=== PATIENT | female | born 1980 | race Caucasian/White ===

== ENCOUNTER 2020-04-12 16:37 | Emergency (ER) | payer OTHER, SELFPAY ==
[2020-04-12 16:54] VITALS: PULSE 110; RESP 18
[2020-04-12 16:55] VITALS: BP 145/93; PULSE 129; RESP 18; TEMP 37.3; O2SAT 100
[2020-04-12 17:05] VITALS: BP 145/93; PULSE 129; RESP 18; TEMP 37.3; O2SAT 100
--- NOTE | 2020-04-12 17:05 | ED.CHESTPAIN ---
HPI - Chest Pain General Chief Complaint: Chest Pain Stated Complaint: chest tightness History of Present Illness HPI narrative: This is a 40-year-old female comes in complaining of intermittent chest pains patient currently is complaining chest tightness she can also feel her heart beating on her chest. Mrs Barboza states that she has had some shortness of breath. Patient states that she was just diagnosed in December with multiple sclerosis. Patient states that she just got off her steroids last week. Patient is very anxious tearful at times. Patient states that it just feels like pressure there is no radiation to arms. Patient talking rapidly states that she is scared she is afraid to be alone due to she feels weird like something is going to happen for her. Patient denies any depression or anxiety but states currently she is a little nervous. Explained to patient that she needs to relax and remain calm. Related Data Home Medications Medication Instructions Recorded Confirmed Capoxone 40 mg 3XW 04/12/20 omeprazole 04/12/20 Allergies Allergy/AdvReac Type Severity Reaction Status Date / Time No Known Allergies Allergy Unverified 09/01/17 14:27 Review of Systems Review of Systems: Narrative: CONSTITUTIONAL: Denies fever, chills, or sweats. EYES: Positive for visual changes, negative redness, or discharge. ENT: Denies rhinorrhea, congestion, sore throat, or otalgia. CARDIOVASCULAR positive chest pain, palpitations, or edema. RESPIRATORY: Denies cough or dyspnea. GASTROINTESTINAL: Denies abdominal pain, nausea, vomiting, or diarrhea. GENITOURINARY: Denies dysuria or hematuria. SKIN:[Denies rash or itching. MUSCULOSKELETAL:Denies back pain, joint pain, or myalgia. NEUROLOGIC: Denies headache, numbness, or weakness. PSYCHIATRIC: Positive for anxiety or depression PMFSH Comments At time as signature, I have reviewed and agree with nursing past medical, social, surgical and family history. Please see nursing chart for further information. There is no relevant family history pertinent to the presenting complaint. Exam Narrative: Exam Narrative: GENERAL:Well-appearing, well-nourished, positive for distress, very anxious. HEAD:Normocephalic, atraumatic. EYES: PERRLA and EOMI. ENT: Nares clear, no rhinorrhea or epistaxis. Mucous membranes moist. NECK: Supple. CHEST: Clear to auscultation. No respiratory distress. HEART: Irregular regular tacky rate and rhythm. No murmur heard. Normal peripheral pulses. ABDOMEN: Soft, nontender, nondistended, normal active bowel sounds. EXTREMITIES: Normal range of motion. No edema. SKIN: Warm, dry, no rash. NEURO: No focal deficits. Alert and oriented x3. Course Vital Signs Vital signs: Vital Signs Temperature 99.1 F 04/12/20 16:55 Pulse Rate 129 H 04/12/20 16:55 Respiratory Rate 18 04/12/20 16:55 Blood Pressure 145/93 H 04/12/20 16:55 Pulse Oximetry 100 04/12/20 16:55 Temperature 99.1 F 04/12/20 16:55 Pulse Rate 129 H 04/12/20 16:55 Respiratory Rate 18 04/12/20 16:55 Blood Pressure 145/93 H 04/12/20 16:55 Pulse Oximetry 100 04/12/20 16:55 Transfer Transfered to: [facility] Transfer rationale: higher acuity of care Accepting physician: [facility] - Chest Pain MDM Narrative Medical decision making narrative: EKG look Sinus Tachycardia 116 ECG Data EKG #1: ECG completion date: 04/12/20 ECG completion time: 17:29 Prior ECG tracings: not available for review EKG Interpretation: tachycardia, no ST changes and normal QT Discharge Plan Discharge Clinical Impression: Feeling of chest tightness, Anxiousness Patient Disposition: Acute Care Hospital Prescriptions: No Action omeprazole 40 mg capsule,delayed release(DR/EC) RF: 0 Capoxone 40 mg 3XW RF: 0 Follow-up/Referrals: PHYSICIAN,[facility]UR[employer] SUPERVISOR [Primary Care Provider] - Time of Disposition: 17:30
--- NOTE | 2020-04-12 17:11 | ECG_ITS ---
Measurements Intervals [place] Rate: 114 P: 37 [place]: 158 QRS: 28 QRSD: 85 T: 30 QT: 300 QTc: 414 Interpretive Statements SINUS TACHYCARDIA BASELINE ARTIFACT- I, III, AVL, V4-V6 ABNORMAL ECG Electronically Signed On 04-13-2020 8:20:38 SCHEDULE CHECKER by Channing Strong D.O.
== END 2020-04-12 17:38 | disposition short-term general hospital (02) ==
PROVIDERS: Emergency Provider Nurse Practitioner Family
DX: R07.89 Other chest pain (principal); F41.9 Anxiety disorder, unspecified; R00.0 Tachycardia, unspecified
CPT/HCPCS: 93005; 99215; G0463

== ENCOUNTER 2020-04-12 17:55 | Emergency (ER) | payer OTHER, SELFPAY ==
[2020-04-12] VITALS (27 sets, daily range): BP systolic 113–165; BP diastolic 84–100; PULSE 90–129; RESP 14–36; TEMP 36.9; O2SAT 93–100
--- NOTE | ~2020-04-12 | XR_ITS ---
XR chest 2V DATE: 04/12/2020 18:49 INDICATION: Chest tightness. Palpitations. Neck spasms. TECHNIQUE: PA and lateral chest COMPARISON: 04/09/2014 PA and lateral chest FINDINGS: Normal heart size. No hilar or mediastinal enlargement. No pulmonary infiltrate or consolid ation, pleural effusion or pulmonary vascular congestion or pneumothorax is detected. IMPRESSION: No active cardiopulmonary disease Reviewed, dictated and finalized at location A. PROGRAMMER
--- NOTE | 2020-04-12 18:20 | ECG_ITS ---
Measurements Intervals [place] Rate: 110 P: 36 SD: 138 QRS: -7 QRSD: 93 T: 20 QT: 333 QTc: 451 Interpretive Statements SINUS TACHYCARDIA ABNORMAL ECG Electronically Signed On 04-13-2020 8:21:08 [employer] by Channing Strong D.O.
[2020-04-12 18:36] LABS: Basophils Absolute Auto 0.1 K/mm3 (0.0-0.1); Basophils Percent Auto 0.7 % (0.2-1.2); Eosinophils Absolute Auto 0.2 K/mm3 (0-0.3); Eosinophils Percent Auto 1.4 % (0-4.4); Hematocrit 44.5 % (37.0-47.0); Hemoglobin 14.8 g/dL (12.0-15.0); Immature Granulocyte Absolute 0.03 K/mm3 (0.00-0.031); Immature Granulocyte Percent A 0.2 % (0-0.5); Lymphocytes Absolute Auto 1.81 K/mm3 (0.9-3.2); Lymphocytes Percent Auto 13.7 % (18.3-44.2); Mean Corpuscular HGB Conc 33.3 g/dl (32-36); Mean Corpuscular Hemoglobin 29.5 pg (26-34); Mean Corpuscular Volume 88.6 fl (80-100); Mean Platelet Volume 8.6 fl (7.4-10.4); Monocytes Absolute Auto 0.5 K/mm3 (0.1-0.6); Monocytes Percent Auto 4.1 % (2.6-8.5); Neutrophils Absolute Auto 10.5 K/mm3 (1.3-6.7); Neutrophils Percent Auto 79.9 % (45.5-73.1); Platelet Count Result 452 k/mm3 (150-375); Red Blood Count 5.02 M/mm3 (4.2-5.4); Red Cell Distribution Width 12.8 % (11.5-14.5); White Blood Count 13.2 K/mm3 (4.5-10.0)
[2020-04-12 18:53] LABS: Anion Gap 9 mmol/L (8-16); Blood Urea Nitrogen 14 mg/dL (7-17); Calcium 9.3 mg/dL (8.4-10.2); Carbon Dioxide 28 mmol/L (22-30); Chloride 102 mmol/L (98-107); Estimated CRCL calculation 125 ml/min; Estimated Glomerular Filt Rate > 60; Glucose 116 mg/dL (65-105); Potassium 3.8 mmol/L (3.4-5.0); Sodium 139 mmol/L (137-145)
--- NOTE | 2020-04-12 19:21 | PC.NURSE ---
Pt. in WR, not able to st. cath. Pt. in no acute distress, skin signs and resp. wnl
[2020-04-12 19:26] LABS: Prothrombin Time 13.4 Seconds (11.1-14.7)
[2020-04-12 19:27] LABS: Partial Thromboplastin Time 30.6 SECONDS (22.3-36.8)
[2020-04-12 19:29] LABS: D Dimer 0.31 ug/mL (<0.48)
[2020-04-12 19:59] LABS: Magnesium 2.2 mg/dL (1.6-2.3)
[2020-04-12] MEDS: ALPRAZolam (*CRX) 0.25 MG TABLET PO (20:03)
--- NOTE | 2020-04-12 20:04 | ED.SOB ---
HPI - SOB/Dyspnea General Chief Complaint: Shortness of Breath/Dyspnea Stated Complaint: CP Time Seen by Provider: 04/12/20 19:03 Source: patient Mode of arrival: ambulatory Limitations: no limitations History of Present Illness HPI Narrative: This patient is a 40 year old female who presents for evaluation of elevated blood pressure and chest tightness. Patient reports she finished a course of high dose steroids for MS last week. She reports she has been having palpitations and not feeling well since she finished. Today she started feeling like she had spasms in her neck, left chest tightness. She also reports feeling like her heart is pounding out of her chest. She checked her vitals at home, and she was found to have HR 130 and BP 140s/110s. She also feels like she cant breath, and she feels like she is going to . She reports she has history of anxiety but it is worse. Related Data Home Medications Medication Instructions Recorded Confirmed Capoxone 40 mg 3XW 04/12/20 omeprazole 04/12/20 Allergies Allergy/AdvReac Type Severity Reaction Status Date / Time No Known Allergies Allergy Unverified 09/01/17 14:27 Review of Systems Review of Systems: All systems reviewed & are unremarkable except as noted in HPI and below Constitutional: Constitutional: Denies chills and Denies fever(s) ENT: Denies nasal congestion Cardiovascular: Cardiovascular: Reports chest pain, Reports rapid heart rate and Denies radiating jaw, neck or arm pain Respiratory: Respiratory: Denies chest congestion and Reports dyspnea Gastrointestinal: Gastrointestinal: Denies abdominal pain, Denies nausea and Denies vomiting Genitourinary: Genitourinary: Denies dysuria Musculoskeletal: Musculoskeletal: Reports muscle cramps PMFSH Past Medical History Medical History (Updated 04/13/20 @ 00:01 by Abelardo Segal) Anxiousness Multiple sclerosis Social History Social History (Updated 04/12/20 @ 22:47 by Chasity Jack MD) Smoking status: Never smoker Exam Const: General: alert Orientation/consciousness: patient oriented x3 HENMT: Head: normocephalic and atraumatic Ears: TM's normal bilaterally Face and sinus: normal facial exam, sinuses nontender and face symmetric Mouth: Yes Normal oral and palatal mucosa present, Yes lip normal, Yes oropharynx normal and Yes moist mucous membranes Throat: posterior oropharynx normal, tonsils normal and uvula midline Eyes: Pupils: Equal, round and reactive pupils present EOM: EOMs intact bilaterally Resp: Effort & Inspection: normal respiratory effort and no retractions Auscultation: clear to auscultation bilaterally Cardio: Rate: regular rate Rhythm: regular rhythm Heart sounds: no murmurs GI: GI Palp: Yes Soft to palpation, No Tenderness to palpation present (GI), No Guarding due to palpation present (GI) and No Rigid due to palpation Auscultation: normal bowel sounds Skin: General skin exam: normal color Rashes: no rashes Neuro: General: patient oriented x3, moves all extremities, no meningeal signs and CN's II-XI intact bilaterally Psych: Affect: Anxious affect present Course Reevaluation(s) Reevaluation #1: PAtient presented with multiple symptoms. This could be anxiety. I discussed it is unclear if any of these are related to her MS. She has been discussing symptoms with her neurologist for a week. She is stable to be discharge with follow up . Date: 04/12/20 Time: 22:48 Vital Signs Vital signs: Vital Signs Temperature 98.4 F 04/12/20 17:55 Pulse Rate 119 H 04/12/20 17:55 Respiratory Rate 20 04/12/20 17:55 Blood Pressure 148/95 H 04/12/20 17:55 Pulse Oximetry 100 04/12/20 17:55 Temperature 98.4 F 04/12/20 17:55 Pulse Rate 96 04/12/20 23:14 Respiratory Rate 24 H 04/12/20 23:14 Blood Pressure 129/90 04/12/20 23:14 Pulse Oximetry 100 04/12/20 23:14 MDM - SOB/Dyspnea Lab Data Attestation: I rev
--- NOTE | 2020-04-12 20:10 | PC.NURSE ---
pt unable to provide urine specimen at this time.
[2020-04-12 20:12] LABS: Troponin I < 0.012 ng/mL (0.000-0.034)
[2020-04-12] MEDS: KETOROLAC 30 MG/ML VIAL (*BKC) IV PUSH (20:24)
[2020-04-12] MEDS: LACTATED RINGERS 1,000 ML 999 ML IV CONT (20:24)
--- NOTE | 2020-04-12 21:00 | PC.NURSE ---
pt states cant pee yet, i dont have the urge. LR infusing currently will assess again shortly.
--- NOTE | 2020-04-12 21:46 | PC.NURSE ---
pt still denying ability to urinate at this time.
[2020-04-12 22:38] LABS: Troponin I < 0.012 ng/mL (0.000-0.034)
== END 2020-04-12 23:15 | disposition home or self-care (01) ==
PROVIDERS: Emergency Provider General Practice
DX: R00.2 Palpitations (principal); R07.89 Other chest pain; G35 Multiple sclerosis; R00.0 Tachycardia, unspecified
CPT/HCPCS: 36415; 71046; 80048; 81025; 83605; 83735; 84484; 85025; 85380; 85610; 85730; 93005; 96361; 96374; 99284; A9270; J1885; J7120